=== PATIENT | male | born 1970 | race Caucasian/White ===

== ENCOUNTER 2016-12-10 17:02 | Emergency (ER) | payer BC ==
--- NOTE | 2016-12-10 17:11 | Emergency Department Record ---
History of Present Illness - General Chief Complaint: Chest Pain Stated Complaint: CHEST PAIN Time Seen by Provider: 12/10/16 17:05 Source: Patient, Family Mode of Arrival: Ambulatory Limitations: No limitations - History of Present Illness Initial Comments: 46 yo male presents with about 4 hours of pain. The pain started in the left back. It radiates to the chest. It started mild and has gradually increased. The pain is sharp and changes with positions. The pain is worse with deep inspiration, sitting up, moving the left arm. He is most comfortable laying down. The pain is about 4/10 laying. If he changes positions or breaths deeply it goes to 9/10. No cough. No recent travel or surgery. No history of CAD or PE. PCP is Dr Mahmood. The patient had a normal stress test in 2016. He has been worked up extensively for possible seizures at [facility]. He is on Prednisone currently for Vertigo through his PCP MD Complaint: Chest pain, Other Onset/Timin -: Hour(s) Onset: During rest Pain Location: Left chest Pain Radiation: Back Severity: Mild Severity scale (1-10): 4 Quality: Sharp Consistency: Constant Improves With: Nothing Worsens With: Nothing Context: New medications - Related Data Home Medications Medication Instructions Recorded Confirmed Last Taken Prednisone [Prednisone 10Mg] 10 mg PO BID 12/10/16 12/10/16 12/10/16 Previous Rx's Medication Instructions Recorded Diazepam [Valium] 5 mg PO Q12H #15 tab 12/10/16 Hydrocodone/Acetaminophen [Lawrence 1 each PO Q8H #20 tablet 12/10/16 5-325 Tablet] Allergies Allergy/AdvReac Type Severity Reaction Status Date / Time ranitidine [From Zantac] Allergy Severe HIVES Verified 12/10/16 17:08 Travel Screening - Travel/Exposure Within Last 30 Days Have you traveled within the last 30 days?: No Review of Systems Constitutional: Denies: Chills, Fever, Malaise, Weakness Eyes: Denies: Eye discharge ENT: Denies: Congestion, Ear pain, Epistaxis, Throat pain Respiratory: Reports: Cough Cardiovascular: Reports: As per HPI, Chest pain. Denies: Syncope Endocrine: Denies: Fatigue, Polydipsia, Polyuria Gastrointestinal: Denies: Abdominal pain, Diarrhea, Nausea, Vomiting Musculoskeletal: Denies: Arthralgia, Back pain, Myalgia, Neck pain Skin: Denies: Bruising, Change in color, Rash Neurological: Denies: Headache, Numbness, Weakness Psychiatric: Denies: Anxiety Hematological/Lymphatic: Denies: Easy bleeding, Easy bruising Physical Exam - General General Appearance: Alert, Oriented x3, Cooperative, No acute distress Limitations: No limitations - Head Head exam: Normal inspection - Eye Eye exam: Normal appearance, PERRL - ENT ENT exam: Normal exam Ear exam: Normal external inspection Nasal Exam: Normal inspection Mouth exam: Normal external inspection - Neck Neck exam: Normal inspection, Full ROM. negative: Lymphadenopathy, Tenderness - Respiratory Respiratory exam: Normal lung sounds bilaterally, Chest wall tenderness (tender left upper chest). negative: Accessory muscle use, Decreased breath sounds, Prolonged expiratory, Respiratory distress, Rhonchi, Stridor, Wheezes - Cardiovascular Cardiovascular Exam: Regular rate, Normal rhythm, Normal heart sounds Peripheral Pulses: 2+: Radial (R), Radial (L) - GI/Abdominal GI/Abdominal exam: Soft. negative: Tenderness - Rectal Rectal exam: Deferred - exam: Deferred - Extremities Extremities exam: Normal inspection, Full ROM, Normal capillary refill. negative: Pedal edema, Tenderness - Back Back exam: Reports: Normal inspection, Full ROM, Tenderness. Denies: Muscle spasm, Rash noted Image of Body Front/Back: 1 - tenderness left upper back, reproduces the pain - Neurological Neurological exam: Alert, Normal gait, Oriented X3 - Psychiatric Psychiatric exam: Normal affect, Normal mood - Skin Skin exam: Dry, Intact, Normal color, Warm Course Vital Signs 12/10/16 17:03 Temperature 98.0 F Pulse Rate 83 Respiratory 20 Rate Blood Pressure 148/103 Pulse Ox 99 - Reevaluation(s) Reevaluation #1: EKG 17:03 NSR, rate 69, intervals normal with incomplete RBBB, axis normal, ST no acute changes. the EKG was compared to 07/10/15. No changes. The incomplete RBBB pattern was present at that time. 12/10/16 17:13 The Labs were reviewed Glucose is 285 (He is currently on Prednisone) The CBC and CMP otherwise negative The Troponin is negative at 0.012 12/10/16 18:11 Reevaluation #2: On recheck the patient is doing much better He still has pain with moving, deep breaths, or trying to sit up The pain is still reproducible with palpation of the upper left back and anterior chest This is very atypical for any ACS with the clear reproducible nature of the pain The CTA is pending. 12/10/16 18:[address] scan was negative for PE, Coronary Calcifications, Aneurysm, or dissection with some limitation dissection evaluation due to timing of the contrast. Mild dependent atelectasis. The patient was informed of the results A second set of enzymes will be planned for 9pm. 12/10/16 18:47 Medical Decision Making - Lab Data Result diagrams: 12/10/16 17:15 12/10/16 17:15 Disposition Clinical Impression: Chest wall discomfort Back pain Qualifiers: Back pain location: thoracic back pain Chronicity: acute Back pain laterality: left Qualified Code(s): M54.6 - Pain in thoracic spine Disposition: Home, Self-Care Condition: (1) Good Instructions: Chest Pain (ED) Additional Instructions: Call Dr Mahmood tomorrow for close follow up You will need your blood sugars checked while on Prednisone as they can temporarily run high Return if worse, fever, cough, pain that is not reproducible Prescriptions: Diazepam [Valium] 5 mg PO Q12H #15 tab Hydrocodone/Acetaminophen [Lawrence 5-325 Tablet] 1 each PO Q8H #20 tablet Forms: Patient Portal Access Quality - Quality Measures Quality Measures: N/A - Blood Pressure Screening Does Patient Have Any of the Following: No Blood Pressure Classification: Hypertensive Reading Systolic Measurement: 148 Diastolic Measurement: 103 Screening for High Blood Pressure: < Pre-Hypertensive BP, F/U Documented > [ G8950] Pre-Hypertensive Follow-up Interventions: Referral to alternative/primary care provider.
[2016-12-10] MEDS ORDERED: KETOROLAC 30 MG/ML VIAL IVP ONE (17:15)
[2016-12-10] MEDS ORDERED: MORPHINE SULFATE 5 MG/ML PFS IVP ONE (17:15)
[2016-12-10] MEDS ORDERED: 0.9 % SODIUM CHLORIDE 1,000 ML BAG IV ONE (17:15)
[2016-12-10 17:22] LABS: BASO % 0.1 % (0-6); EOS % 0.6 % (0-6); GRAN % 70.1 % (47-80); HEMATOCRIT 47.4 % (42.0-52.0); HEMOGLOBIN 16.2 gm/dl (14.0-18.0); LYMPH % 20.1 % (16-45); MEAN CELL VOLUME 88.9 fl (81-97); MEAN CORPUSCULAR HEMOGLOBIN 30.4 pg (27-33); MEAN CORPUSCULAR HGB CONC 34.2 g/dl (32-36); MEAN PLATELET VOLUME 10.6 fl (7.4-10.4); MONO % 9.1 % (0-9); PLATELET COUNT 223 K/uL (130-400); RED BLOOD COUNT 5.33 M/uL (4.40-5.70); RED CELL DISTRIBUTION WIDTH 12.6 % (11.5-14.5); WHITE BLOOD COUNT W/O DIFF 9.8 K/uL (4.2-12.2)
[2016-12-10 17:38] LABS: ALB/GLOB RATIO 1.5 (1.1-1.8); ALBUMIN 4.5 gm/dL (3.5-5.0); ALKALINE PHOSPHATASE 68 U/L (38-126); ALT/SGPT 65 U/L (21-72); ANION GAP 10.8 (7-16); AST/SGOT 20 U/L (17-59); BILIRUBIN,TOTAL 0.77 mg/dL (0.2-1.3); BLOOD UREA NITROGEN 14 mg/dL (9-20); CARBON DIOXIDE 27.2 mmol/L (22-30); CREATINE PHOSPHOKINASE 57 U/L (55-170); EST GLOMERULAR FILTRATION RATE > 60 ml/min; GLUCOSE,RANDOM 285 mg/dL (70-110); TOTAL PROTEIN 7.5 gm/dL (6.3-8.2)
[2016-12-10 17:39] LABS: INR 0.95; PARTIAL THROMBOPLASTIN TIME 23.1 SECONDS (24.5-39.1); PROTHROMBIN TIME (PATIENT) 10.3 SECONDS (9.5-12.1)
[2016-12-10 17:52] LABS: CKMB 0.6 ug/L (0-6); TROPONIN I < 0.012 ng/mL (0.00-0.034)
--- NOTE | 2016-12-10 21:26 | Emergency Department Record ---
History of Present Illness - General Chief Complaint: Chest Pain Stated Complaint: CHEST PAIN Time Seen by Provider: 12/10/16 17:05 Source: Patient, Family Mode of Arrival: Ambulatory Limitations: No limitations - History of Present Illness Onset/Timin -: Hour(s) Onset: During rest Pain Location: Left chest Pain Radiation: Back Severity: Mild Severity scale (1-10): 4 Quality: Sharp Consistency: Constant Improves With: Nothing Worsens With: Nothing Context: New medications - Related Data Home Medications Medication Instructions Recorded Confirmed Last Taken Prednisone [Prednisone 10Mg] 10 mg PO BID 12/10/16 12/10/16 12/10/16 Previous Rx's Medication Instructions Recorded Diazepam [Valium] 5 mg PO Q12H #15 tab 12/10/16 Hydrocodone/Acetaminophen [Felton 1 each PO Q8H #20 tablet 12/10/16 5-325 Tablet] Allergies Allergy/AdvReac Type Severity Reaction Status Date / Time ranitidine [From Zantac] Allergy Severe HIVES Verified 12/10/16 17:08 Travel Screening - Travel/Exposure Within Last 30 Days Have you traveled within the last 30 days?: No Review of Systems Constitutional: Denies: Chills, Fever, Malaise, Weakness Eyes: Denies: Eye discharge ENT: Denies: Congestion, Ear pain, Epistaxis, Throat pain Respiratory: Reports: Cough Cardiovascular: Reports: As per HPI, Chest pain. Denies: Syncope Endocrine: Denies: Fatigue, Polydipsia, Polyuria Gastrointestinal: Denies: Abdominal pain, Diarrhea, Nausea, Vomiting Musculoskeletal: Denies: Arthralgia, Back pain, Myalgia, Neck pain Skin: Denies: Bruising, Change in color, Rash Neurological: Denies: Headache, Numbness, Weakness Psychiatric: Denies: Anxiety Hematological/Lymphatic: Denies: Easy bleeding, Easy bruising Past Medical History - SOCIAL HISTORY Smoking Status: Never smoker Alcohol Use: Occasional Drug Use: None - RESPIRATORY Hx Respiratory Disorders: No - CARDIOVASCULAR Hx Cardio Disorders: No - NEURO Hx Neuro Disorders: Yes Comment:: seizures but still being diagnosed - GI Hx GI Disorders: No - Hx Genitourinary Disorders: No - ENDOCRINE Hx Endocrine Disorders: No - MUSCULOSKELETAL Hx Musculoskeletal Disorders: No - PSYCH Hx Psych Problems: No - HEMATOLOGY/ONCOLOGY Hx Hematology/Oncology Disorders: No Family Medical History Any Significant Family History?: Yes Hx Diabetes: Father Physical Exam - General Limitations: No limitations Course Vital Signs 12/10/16 12/10/16 12/10/16 17:03 17:27 18:47 Temperature 98.0 F Pulse Rate 83 Pulse Rate [ 96 H 67 Marinator ] Respiratory 20 18 18 Rate Blood Pressure 148/103 Blood Pressure 137/88 133/90 [Left Arm] Pulse Ox 99 99 98 12/10/16 12/10/16 19:28 21:14 Temperature Pulse Rate Pulse Rate [ 74 73 Marinator ] Respiratory 20 20 Rate Blood Pressure Blood Pressure 133/88 131/91 [Left Arm] Pulse Ox 96 98 - Reevaluation(s) Reevaluation #1: 12/10/16 21:25 Repeat troponin has resulted and is negative for myocardial injury. Patient was updated on all results and appears stable for discharge at this time with treatment for likely musculo-skeletal etiology of his symptoms. Medical Decision Making - Lab Data Result diagrams: 12/10/16 17:15 12/10/16 17:15 Lab Results 12/10/16 12/10/16 12/10/16 Range/Units 17:15 17:15 17:15 WBC 9.8 (4.2-12.2) K/uL RBC 5.33 (4.40-5.70) M/uL Hgb 16.2 (14.0-18.0) gm/dl Hct 47.4 (42.0-52.0) % MCV 88.9 (81-97) fl MCH 30.4 (27-33) pg MCHC 34.2 (32-36) g/dl RDW 12.6 (11.5-14.5) % Plt Count 223 (130-400) K/uL MPV 10.6 H (7.4-10.4) fl Gran % 70.1 (47-80) % Lymphocytes % 20.1 (16-45) % Monocytes % 9.1 H (0-9) % Eosinophils % 0.6 (0-6) % Basophils % 0.1 (0-6) % PT 10.3 (9.5-12.1) SECONDS INR 0.95 APTT 23.10 L (24.5-39.1) SECONDS Sodium 137 (136-145) mmol/L Potassium 3.7 (3.5-5.1) mmol/L Chloride 99 (98-107) mmol/L Carbon Dioxide 27.2 (22-30) mmol/L Anion Gap 10.8 (7-16) BUN 14 (9-20) mg/dL Creatinine 1.0 (0.66-1.25) mg/dL Estimated GFR > 60 ml/min Random Glucose 285 H (70-110) mg/dL Calcium 9.2 (8.5-10.1) mg/dL Total Bilirubin 0.77 (0.2-1.3) mg/dL AST 20 (17-59) U/L ALT 65 (21-72) U/L Alkaline Phosphatase 68 (38-126) U/L Creatine Kinase 57 (55-170) U/L CK-MB (CK-2) 0.6 (0-6) ug/L Troponin I < 0.012 (0.00-0.034) ng/mL Total Protein 7.5 (6.3-8.2) gm/dL Albumin 4.5 (3.5-5.0) gm/dL Globulin 3.0 (1.4-4.8) gm/dL Albumin/Globulin Ratio 1.5 (1.1-1.8) 12/10/16 Range/Units 21:02 WBC (4.2-12.2) K/uL RBC (4.40-5.70) M/uL Hgb (14.0-18.0) gm/dl Hct (42.0-52.0) % MCV (81-97) fl MCH (27-33) pg MCHC (32-36) g/dl RDW (11.5-14.5) % Plt Count (130-400) K/uL MPV (7.4-10.4) fl Gran % (47-80) % Lymphocytes % (16-45) % Monocytes % (0-9) % Eosinophils % (0-6) % Basophils % (0-6) % PT (9.5-12.1) SECONDS INR APTT (24.5-39.1) SECONDS Sodium (136-145) mmol/L Potassium (3.5-5.1) mmol/L Chloride (98-107) mmol/L Carbon Dioxide (22-30) mmol/L Anion Gap (7-16) BUN (9-20) mg/dL Creatinine (0.66-1.25) mg/dL Estimated GFR ml/min Random Glucose (70-110) mg/dL Calcium (8.5-10.1) mg/dL Total Bilirubin (0.2-1.3) mg/dL AST (17-59) U/L ALT (21-72) U/L Alkaline Phosphatase (38-126) U/L Creatine Kinase (55-170) U/L CK-MB (CK-2) (0-6) ug/L Troponin I < 0.012 (0.00-0.034) ng/mL Total Protein (6.3-8.2) gm/dL Albumin (3.5-5.0) gm/dL Globulin (1.4-4.8) gm/dL Albumin/Globulin Ratio (1.1-1.8) Disposition Clinical Impression: Chest wall discomfort Back pain Qualifiers: Back pain location: thoracic back pain Chronicity: acute Back pain laterality: left Qualified Code(s): M54.6 - Pain in thoracic spine Disposition: Home, Self-Care Condition: (1) Good Instructions: Chest Pain (ED) Additional Instructions: Call Dr Mahmood tomorrow for close follow up You will need your blood sugars checked while on Prednisone as they can temporarily run high Return if worse, fever, cough, pain that is not reproducible Prescriptions: Diazepam [Valium] 5 mg PO Q12H #15 tab Hydrocodone/Acetaminophen [Felton 5-325 Tablet] 1 each PO Q8H #20 tablet Forms: Patient Portal Access Quality - Quality Measures Quality Measures: N/A - Blood Pressure Screening Does Patient Have Any of the Following: No Blood Pressure Classification: Hypertensive Reading Systolic Measurement: 148 Diastolic Measurement: 103 Screening for High Blood Pressure: < First Hypertensive BP, F/U Documented > [ G8950] First Hypertensive Follow-up Interventions: Referral to alternative/primary care provider.
[2016-12-10] MEDS ORDERED: HYDROCODONE/APAP 5/325MG TABLET PO ONE (21:32)
--- NOTE | 2016-12-11 15:10 | CT ANGIOGRAM REPORT ---
EXAM: CT ANGIOGRAM OF THE CHEST FOR PULMONARY EMBOLUS HISTORY: ACUTE ONSET OF LEFT SIDED CHEST PAIN RADIATING INTO BACK. PAIN WITH DEEP BREATH. TECHNIQUE: Routine CT angiogram of the chest was performed utilizing a pulmonary embolus protocol with 75 ml of Omnipaque 350 utilized. Coronal and sagittal maximum intensity projection reformatted images are generated and reviewed. Comparison: Two view chest radiographic examination dated 04/08/08. FINDINGS: Opacification of the pulmonary arteries is satisfactory for interpretation. No luminal filling defect is noted in the outflow tract, main arteries, lobar arteries, nor proximal segmental arteries to suggest acute pulmonary embolic disease. Evaluation of the subsegmental arteries in the posterior lung bases is limited by motion artifact. The heart is not enlarged. No gross atherosclerotic calcification of the coronary arteries. The thoracic aorta is normal in caliber. Opacification of the thoracic aorta is not optimal to evaluate for dissection. No noncalcified mediastinal or hilar mass/lymphadenopathy is seen. There are calcified lymph nodes in the right paratracheal, subcarinal, and right hilar regions consistent with healed granulomatous disease. There is a calcified granuloma redemonstrated within the right upper lobe anteriorly measuring 6 mm in maximum diameter. Minor ground glass opacities are noted dependently in the lower lungs likely relating to atelectasis rather than early infiltrate. The central airways are clear. There is questionable minor wall thickening of segmental bronchi in the lower lobes with mild bronchitis difficult to exclude. No pleural or pericardial effusion. The adrenal glands are not enlarged though the left adrenal gland is not entirely imaged. There is diffuse hepatic steatosis with small areas of sparing centrally within the medial segment of the left liver lobe. No lytic or blastic bone lesion. There are mild degenerative changes of the visualized spine. IMPRESSION: 1. NO CT EVIDENCE OF ACUTE PULMONARY EMBOLIC DISEASE. 2. MILD GROUND GLASS OPACITY IN THE DEPENDENT LUNGS INFERIORLY LIKELY RELATING TO ATELECTASIS WITH EARLY PNEUMONITIS LESS LIKELY. 3. 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 4. HEPATIC STEATOSIS. JOB NUMBER: [id number] [facility]
== END 2016-12-10 21:38 | disposition home or self-care (01) ==
LOC: ER 17:02
DX: R07.89 Other chest pain (principal); M54.6 Pain in thoracic spine; R06.02 Shortness of breath
CPT/HCPCS: 99284 ×2; 96374; 96375; 82550; 85025; 85730; 85610; 82553; 84484; 80053; 71275; 93005; 93010; Q9967; J1885; J2270; J7030

== ENCOUNTER 2019-02-22 08:54 | Day surgery (SDC) | payer BC ==
[2019-02-22] MEDS ORDERED: PROPOFOL 10 MG/ML VIAL IV ONE (08:55)
[2019-02-22] MEDS ORDERED: LIDOCAINE 2% MDV (20MG/ML) 20ML VIAL IV ONE (08:55)
[2019-02-22] MEDS ORDERED: MIDAZOLAM HCL 2MG/2ML VIAL IV ONE ×2 (08:55)
--- NOTE | 2019-02-22 14:30 | Operative Note ---
OPERATION: COLONOSCOPY to the cecum with cold biopsy forceps polypectomy x1. INDICATION: Colorectal cancer screening. This is the patient's first examination. ANESTHESIA: Intravenous sedation was administered by the department of anesthesiology and included Diprivan titrated to effect. PROCEDURE: Following informed consent from this alert individual including a discussion of the risks and benefits of the procedure and an opportunity for the patient to ask questions, the patient was in the left lateral decubitus position. A digital rectal examination was performed. No abnormalities were noted. Following this, the Olympus [id number] video colonoscope was inserted into the rectum without resistance. The rectal mucosa had a normal appearance with normal folds and distensibility. The colonoscope was advanced up through the bowel to the level of the cecum without much difficulty. Throughout the bowel the mucosa appeared normal, the folds were normal, and the bowel was fairly well distensible. There were a few small diverticula noted in the sigmoid colon and ascending colon. The cecum was defined by noting the appendiceal orifice and ileocecal valve. Overall, the colon preparation was adequate. From the base of the cecum, the colonoscope was then slowly withdrawn. There was a diminutive 3 mm polyp noted in the proximal descending colon which was removed with application of cold biopsy forceps. No other additional changes were appreciated. Retroflexion in the rectum was endoscopically normal. The instrument was straightened and withdrawn. The patient tolerated the procedure well and was returned to the recovery area in stable condition. IMPRESSION: 1. A 3 mm proximal descending colon polyp removed with cold snare polypectomy. 2. Sigmoid and ascending colon diverticulosis, mild. RECOMMENDATIONS: Further recommendations will be forthcoming pending results of pathology obtained today. Followup will also be with Boris Mahmood DO. As always, thank you for allowing me to participate in the care of your patient. SERGIO
== END 2019-02-22 10:53 | disposition home or self-care (01) ==
LOC: HOP 08:54
PROVIDERS: ATTEND Internal Medicine Gastroenterology
DX: Z12.11 Encounter for screening for malignant neoplasm of colon (principal); D12.4 Benign neoplasm of descending colon; K57.30 Diverticulosis of large intestine without perforation or abscess without bleeding; R73.03 Prediabetes